=== PATIENT | male | born 1985 | race Caucasian/White ===

== ENCOUNTER 2017-04-21 13:42 | Emergency (ER) | payer SELFPAY ==
[~2017-04-21] VITALS: Ht 182.9 cm; Wt 145.0 kg
[2017-04-21 13:44] VITALS: BP 140/82
== END 2017-04-21 16:02 | disposition home or self-care (01) ==
LOC: ED 14:35
DX: I80.01 Phlebitis and thrombophlebitis of superficial vessels of right lower extremity (principal)
CPT/HCPCS: 99284

== ENCOUNTER 2017-04-27 13:51 | Emergency (ER) | payer OTHER ==
[~2017-04-27] VITALS: Ht 182.9 cm; Wt 145.1 kg
[2017-04-27 13:54] VITALS: BP 133/80
== END 2017-04-27 15:18 | disposition home or self-care (01) ==
LOC: ED 14:29
DX: F41.1 Generalized anxiety disorder (principal)
CPT/HCPCS: 82962; 93005; 99285